=== PATIENT | female | born 1995 | race Two or more races ===

== ENCOUNTER 2020-10-05 08:30 | Emergency (ER) | payer OTHER, BC ==
[2020-10-05] MEDS ORDERED: DIAZEPAM 5 MG TABLET PO ONE (08:56)
[2020-10-05] MEDS ORDERED: IBUPROFEN 600 MG TABLET PO ONE (08:56)
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
[2020-10-05 12:28] VITALS: BP 129/99
== END 2020-10-05 12:28 | disposition home or self-care (01) ==
LOC: ER 08:30
DX: S16.1XXA Strain of muscle, fascia and tendon at neck level, initial encounter (principal); S29.019A Strain of muscle and tendon of unspecified wall of thorax, initial encounter; M54.2 Cervicalgia; M54.9 Dorsalgia, unspecified; M54.6 Pain in thoracic spine; M54.5 Low back pain; V89.2XXA Person injured in unspecified motor-vehicle accident, traffic, initial encounter
CPT/HCPCS: 72070; 72125; 99284